=== PATIENT | female | born 1940 | race Caucasian/White ===

== ENCOUNTER 2019-08-11 19:19 | Inpatient (IN) | payer MEDICARE ==
[~2019-08-11] VITALS: Ht 152.4 cm; Wt 36.9 kg
[~2019-08-11 19:19] MED LIST: ALEVE; CENTRUM SILVER1 TA1 PO
[2019-08-11 20:15] LABS: ARTERIAL BLD GAS O2 SATURATION 96.4 % (92-100); ARTERIAL BLD GAS TCO2 CT 23.2; ARTERIAL BLOOD GAS BASE EXCESS -1.4 (-2-2); ARTERIAL BLOOD GAS HCO3 22.1 meq/L (22-26); ARTERIAL BLOOD GAS PCO2 34.1 mmHg (35-45); ARTERIAL BLOOD GAS PO2 81.3 mmHg (80-100); ARTERIAL BLOOD GAS pH 7.43 (7.35-7.45)
[2019-08-11 20:31] LABS: HEMATOCRIT 44.9 % (37.0-47.0); HEMOGLOBIN 14.2 g/dl (12.5-16.0); MEAN CELL VOLUME 95 fl (80.0-100.0); MEAN CORPUSCULAR HEMOGLOBIN 30 pg (27.0-31.0); MEAN CORPUSCULAR HGB CONC 32 g/dl (33.0-37.0); PLATELET COUNT 312 K/mm3 (130-400); RED BLOOD COUNT 4.71 M/mm3 (4.10-5.30); REDCELL DISTRIBUTION WIDTH-CV 14.7 % (11.5-14.5)
[2019-08-11 20:33] LABS: ALBUMIN 3.6 gm/dL (3.5-5.0); BILIRUBIN,TOTAL 0.9 mg/dL (0.0-1.0); CALCIUM 9.2 mg/dL (8.4-10.2); CREATININE, serum 0.82 (0.52-1.25); POTASSIUM 3.5 mmol/L (3.4-5.0); TOTAL PROTEIN 7.6 gm/dL (6.4-8.2)
[2019-08-11 21:20] LABS: BAND 9 % (0-10); LYMPHOCYTE 3 % (20.0-51.0); NEUTROPHILS 83 % (42.0-75.2); PLATELET ESTIMATE NORMAL (NORMAL)
[2019-08-11 22:00] LABS: COLLECTION METHOD CLEAN CATCH
[2019-08-11 22:10] LABS: MUCOUS Present /lpf; PH 5 (5-8); SQUAMOUS EPITHELIAL None Seen /hpf; URINE APPEARANCE Clear; URINE BACTERIA Many /hpf; URINE BILIRUBIN Negative (NEGATIVE); URINE BLOOD 1+ (NEGATIVE); URINE COLOR Yellow; URINE GLUCOSE Negative (NEGATIVE); URINE KETONE Trace (NEGATIVE); URINE LEUKOCYTE ESTERASE Negative (NEGATIVE); URINE NITRATE Negative (NEGATIVE); URINE PROTEIN(semi-quant) 1+ (NEGATIVE); URINE RBC 0-2 /hpf
[2019-08-12] VITALS (7 sets, daily range): BP systolic 149–180; BP diastolic 52–100; PULSE 75–104; TEMP 97.4–98.2
--- NOTE | 2019-08-12 00:40 | NUR ---
Notified Dr. Corrales in reference to Pt's ability to swallow. Pt was not able to swallow a small sip of water sitting up at a 90 degree angle. Pt coughed and was choking on the water. Dr. Corrales advised that she is now NPO and he will put in for a swallow study with
--- NOTE | 2019-08-12 03:16 | NUR ---
PT UNABLE TO ANSWER QUESTION. PT IS YOMBA SHOSHONE AND WHEN ASKED QUESTIONS DOES NOT RESPOND. ALSO, PT IS VERY DROOSY AND DRIFTS TO SLEEP QUICKLY. PT'S DAUGHTER MORTEZA DOLAN ADVISED ED TO CALL HER IN THE AM [phone].
--- NOTE | 2019-08-12 05:14 | NUR ---
PT SLEEPING WELL IN BED WITH HOB ELEVATED, NO S/S OF PAIN OR DISCOMFORT. CALL LIGHT WITHIN REACH.
--- NOTE | 2019-08-12 06:51 | NUR ---
Vancomycin Initial Dosing Pharmacy Note Ordering provider: Stiven Birmingham DO Indication/duration: cellulitis LABS: SCr 0.82, CrCl~26, GFR 67 Recommendation: Continue with Vancomcyin 500 mg IV q24h. Pharmacy will continue to monitor and check a Vancomycin trough on 08/15/19. Loading dose: 2 grams Maintenance dose: 500 mg every 24 hours Trough goal: 10-15 ug/mL
[2019-08-12 07:17] LABS: HEMATOCRIT 43.2 % (37.0-47.0); HEMOGLOBIN 13.6 g/dl (12.5-16.0); MEAN CELL VOLUME 95 fl (80.0-100.0); MEAN CORPUSCULAR HEMOGLOBIN 30 pg (27.0-31.0); MEAN CORPUSCULAR HGB CONC 32 g/dl (33.0-37.0); MEAN PLATELET VOLUME 9.8 fl (7.4-10.4); PLATELET COUNT 280 K/mm3 (130-400); RED BLOOD COUNT 4.54 M/mm3 (4.10-5.30); REDCELL DISTRIBUTION WIDTH-CV 14.8 % (11.5-14.5)
[2019-08-12 07:25] LABS: BILIRUBIN,TOTAL 0.6 mg/dL (0.0-1.0); CALCIUM 8.5 mg/dL (8.4-10.2); CREATININE, serum 0.66 (0.52-1.25); POTASSIUM 3.6 mmol/L (3.4-5.0); TOTAL PROTEIN 6.7 gm/dL (6.4-8.2)
[2019-08-12 08:11] LABS: BAND 8 % (0-10); NEUTROPHILS 89 % (42.0-75.2); PLATELET ESTIMATE NORMAL (NORMAL)
--- NOTE | 2019-08-12 14:21 | NUR ---
ANGEL contacted the patient's daughter, Ning Vann (ph#[phone]), to discuss discharge plan. The patient lives in [place] with Ning, Ning's , and children. Ning reports that the patient needs assistance with ADLs and has two canes. Ning states that her and her family help the patient with her ADLs. The patient does not have a PCP. Ning reports that the patient does not like doctors and refuses medical care. She states that when they called EMS in the past, the patient screamed at them. Ning reports that the patient has not ever been on any meds or needed presciptions. The patient does not have advanced directives completed. Ning reports that they were working on getting a DPOA-HC completed, but that they were unable to get it witnessed or notarized. Ning reports that the patient has six children. Her, Marisela, Dima, Saurav, and Cyn. She could not recall the sixth siblings name. She states that they are only aware of where Marisela is and that they are only able to speak to her via Instant Information. They do not know where the rest of the patient's children are and do not have contact information for them. The patient appears very thin and malnourished. A palliative care consult was ordered. ANGEL collaborated with Pallitiative Care Nurse, Kenzie, Kenzie reports that the patient's daughter is still deciding on what to pursue next. ANGEL followed up with Ning about this. Ning reports that they are leaning towards hospice at the [facility]. She would like until tomorrow to think about it and will then come to a decision. ANGEL made an APS report. Intake ID#[id number]. ANGEL to continue to follow.
--- NOTE | 2019-08-12 15:00 | NUR ---
Palliative care consult initiated. Pt is not responding to questions. Spoke with daughter, Ning Vann by phone after Dr Lewis had talked with her as well. Daughter reports that pt had used a can or walker to get around the house until she became weaker and became bedbound about 2 weeks ago. "She likes her privacy". Family would prepare her food in small portions and take it to her and then she would ask them to leave. They were not aware that she was having trouble swallowing until this hospital admission. Pt doesn't like doctors and would do anything she could to avaoid seeing one. Family had started working on a DPOA-HC but did not have access to anyone to witness it that wasn't a family member. They had contacted [facility] to ge the form. Ning reports that she is not her mother's only child but is the only one involved in her care. "She has lived with use for as long as i can remember". I talked with Ning about a feeding tube to help her mother eat without having to swallow--which her swallow study indicates is causing aspiration despie consistency. I also talked with Ning about looking at more "comfort care" approach. We would not be focusing on correcting her swallow problem but rather keeping her comfortable during the time she would have left. We talked about hospice services, where they could be used, and how they were paid for. Ning states she wants to talk with family and will call back in morning with decision. She did call back a little later to ask about hospice house and their sliding scale. I provided her with their number and encouraged her to call them with any questions regarding sliding scale.
--- NOTE | 2019-08-12 17:46 | NUR ---
Patient is partially alert, hard of hearing, ulcer on left hip/ lateral buttock cheek, the surface have dark crusting. Patient appears malnourish, require two person transfer due to weak and total ambulation dependence . Patient did not pass swallow study, Left NPO. one episode of Incontinence this shift. KWAKU Espino spoke to daughter about palliative care.
--- NOTE | 2019-08-12 20:00 | NUR ---
Received report from KWAKU Moon. Alert and oriented x3, pt able to state name, date, place, unable to state current situation. denies any pain or discomfort at this time. Remains NPO. Moist oral swab provided to pt as requested. IV x2 to LFA intact, flushed, dressing CDI, fluids infusing. Tele monitor in place. Meds administere as ordered. made pt comfortable. Bed alarm set. call light within reach.
[2019-08-13 05:53] VITALS: BP 164/71; PULSE 85; TEMP 97.7
--- NOTE | 2019-08-13 07:01 | NUR ---
Meds administered as ordered. Moist oral swabs provided to pt as requested throughout the night. Needs attended too. Call light within reach. Bed alarm set.
[2019-08-13 07:02] LABS: HEMATOCRIT 44.1 % (37.0-47.0); HEMOGLOBIN 13.7 g/dl (12.5-16.0); MEAN CELL VOLUME 96 fl (80.0-100.0); MEAN CORPUSCULAR HEMOGLOBIN 30 pg (27.0-31.0); MEAN CORPUSCULAR HGB CONC 31 g/dl (33.0-37.0); MEAN PLATELET VOLUME 9.8 fl (7.4-10.4); PLATELET COUNT 315 K/mm3 (130-400); RED BLOOD COUNT 4.58 M/mm3 (4.10-5.30); REDCELL DISTRIBUTION WIDTH-CV 15.1 % (11.5-14.5)
--- NOTE | 2019-08-13 07:02 | NUR ---
Report given to KWAKU Bentley.
[2019-08-13 07:18] LABS: CALCIUM 9.2 mg/dL (8.4-10.2); CREATININE, serum 0.78 (0.52-1.25); MAGNESIUM 2.6 mg/dL (1.6-2.3); POTASSIUM 3.5 mmol/L (3.4-5.0)
[2019-08-13 07:30] LABS: BAND 33 % (0-10); LYMPHOCYTE 1 % (20.0-51.0); NEUTROPHILS 64 % (42.0-75.2)
[2019-08-13 07:31] LABS: OVALOCYTES 1+; PLATELET ESTIMATE NORMAL (NORMAL); SCHISTOCYTES 1+
[2019-08-13 07:53] VITALS: BP 162/77; PULSE 90; TEMP 97.4
--- NOTE | 2019-08-13 08:15 | NUR ---
PT IN BED, Q2 TURNS IMPLEMENTED, PT REQUESTS ORAL SWABS FREQUENTLY, PT REQUESTS FOOD AND DRINK, EXPLAINS WHY SHE CANNOT HAVE THIS, PT VERY FORGETFUL. PT DENIES PAIN OR DISCOMFORT, ASSESSMENT PERFORMED, MEDICATIONS GIVEN, FLUIDS HUNG, NO OTHER NEEDS AT THIS TIME.
--- NOTE | 2019-08-13 10:21 | NUR ---
MARYCARMEN FERRIS, NOTIFIED ME OF FAMILY DECISION TO SEND PT TO [facility].
--- NOTE | 2019-08-13 10:29 | NUR ---
I spoke with daughter this morning and she reports that they are wanting their mother to go to [facility] as soon as possible so family can visit her. i faxed information to Sadia at [facility] and talked with her. We may be able to transfer there for 2 pm admission today at the earliest or may have to wait until tomorrow. Daughter is aware that focus will be on comfort and antibiotics and IV fluids would not be continued. She has spoken with Sadia at [facility] already and would like for transfer to occur JIMENEZ. Support provided.
[2019-08-13] MEDS ORDERED: TYLENOL SU650 MG/SUP RC (10:57)
[2019-08-13] MEDS ORDERED: TRANSDERM-0.5 MG/21 TD (10:57)
[2019-08-13] MEDS ORDERED: ALBUTEROL0.83 MG/ML IH (10:57)
[2019-08-13] MEDS ORDERED: DULCOLAX S10 MG/SUPP RC (10:57)
[2019-08-13] MEDS ORDERED: ZOFRAN ODT4 MG PO (10:57)
[2019-08-13] MEDS ORDERED: ROXANOL 20MG20 MG/ML SL (10:57)
[2019-08-13] MEDS ORDERED: LORAINT PO (10:57)
[2019-08-13] MEDS ORDERED: COMPAZINE25 MG/SUPP RC (10:57)
--- NOTE | 2019-08-13 11:17 | NUR ---
Pt has been accepted at [facility] with Dr judy Pedro following. Plan for her to arrive there at 2pm today. Family has DPOA-HC paperwork ready for signature and witnessing and should bring to [facility] to complete. health services rn notified and will arrange EMS. Pt given water to drink but promptly choked on it. She did not request food to eat at this time although it was offered.
--- NOTE | 2019-08-13 11:58 | NUR ---
The patient's family has decided to pursue with comfort measures and would like for the patient to transfer to the [facility]. Palliative Care Nurse, Kenzie, faxed a referral to [facility] and they are able to accept the patient today. The patient is to discharge today, 08/12, to the [facility]. Transportation was scheduled at 1345, via [facility]. ANGEL informed the patient's RN, Sadia at [facility], and the patient's daughter, Ning. They were all in agreeance to the time. ANGEL also read the transfer consent form for EMS outloud to Ning. Ning verbalized understanding and gave SW approval to sign the form on her behalf. Sadia, at [facility], requested that ANGEL fax the patient's scripts to [facility]. ANGEL faxed the scripts to [facility]. No additional needs at this time.
--- NOTE | 2019-08-13 12:01 | NUR ---
PT CANNOT FEED HERSELF DUE TO RISK OF CHOKING. FOOD SHOULD BE LEFT OUTSIDE OF DOOR SO SHE DOES NOT TRY TO EAT HERSELF WITHOUT SUPERVISION
[2019-08-13 12:02] VITALS: BP 162/77; PULSE 90; TEMP 97.4
--- NOTE | 2019-08-13 12:57 | NUR ---
CALLED REPORT TO NURSE BENOIT, AT [facility].
--- NOTE | 2019-08-13 13:48 | NUR ---
PT LEAVING HOSPITAL VIA EMS AND STRETCHER, IV DC, ITEMS GOING WITH HER, REPORT CALLED IN PREVIOUSLY.
== END 2019-08-13 13:48 | disposition hospice, inpatient (51) | DRG 871 ==
LOC: COL.ER 19:19 → MEDICAL 21:23
PROVIDERS: Family Medicine; Nurse Practitioner Family
DX: A41.9 Sepsis, unspecified organism (principal); J18.9 Pneumonia, unspecified organism; E43 Unspecified severe protein-calorie malnutrition; E87.0 Hyperosmolality and hypernatremia; Z68.1 Body mass index [BMI] 19.9 or less, adult; R13.10 Dysphagia, unspecified; L89.152 Pressure ulcer of sacral region, stage 2; I10 Essential (primary) hypertension; K56.41 Fecal impaction; R73.9 Hyperglycemia, unspecified; E86.0 Dehydration; Z51.5 Encounter for palliative care
CPT/HCPCS: 99223-AI; 99233-AI; 99239; J0360; J0456; J0696; J1644; J1815; J2543; J3370; J3480; J7040; J7050; J7120